=== PATIENT | female | born 1980 | race Two or more races ===

== ENCOUNTER 2017-03-28 10:18 | Emergency (ER) | payer SELFPAY ==
[~2017-03-28] VITALS: Ht 170.2 cm; Wt 72.6 kg
[2017-03-28 10:23] VITALS: BP 125/87
[2017-03-28] MEDS ORDERED: IBUPROFEN 800 MG TAB PO ONE ×2 (10:49→11:00)
== END 2017-03-28 11:33 | disposition home or self-care (01) ==
LOC: ER 10:18
DX: S16.1XXA Strain of muscle, fascia and tendon at neck level, initial encounter (principal); S20.212A Contusion of left front wall of thorax, initial encounter; V49.49XA Driver injured in collision with other motor vehicles in traffic accident, initial encounter; Y93.89 Activity, other specified; Y99.8 Other external cause status; Y92.89 Other specified places as the place of occurrence of the external cause
CPT/HCPCS: 71020

== ENCOUNTER → 2022-01-11 | Outpatient (CLI) | payer OTHER, BC ==
[2022-01-11 10:59] LABS: Albumin 3.7 g/dL (3.4-5.0); Calcium 9.1 mg/dL (8.5-10.1); Potassium 3.9 mmol/L (3.5-5.1)
[2022-01-11 11:03] LABS: Urine Bacteria MOD /hpf (None Seen); Urine Blood Negative /uL (Negative); Urine Mucus FEW (None Seen); Urine Specific Gravity 1.024 (1.001-1.035); Urine WBC 5 /hpf (0 - 5)
[2022-01-11 11:10] LABS: Thyroid Stimulating Hormone 0.95 uIU/mL (0.358-3.74)
[2022-01-11 11:12] LABS: BUN/Creatinine Ratio 17.6; Bilirubin, Total 0.5 mg/dL (0.2-1.0); Total Protein 8.7 g/dL (6.4-8.2); Uric Acid 3.2 mg/dL (2.6-6.0)
[2022-01-11 14:52] LABS: Basophils # (auto) 0 10 ^3/uL (0-0.2); Basophils % (auto) 0.3 % (0.0-2.0); Eosinophils # (auto) 0.2 10 ^3/uL (0-0.8); Eosinophils % (auto) 1.8 % (0.0-7.0); Hematocrit 41.4 % (36.0-46.0); Hemoglobin 14.1 g/dL (12.2-16.2); Lymphocytes # (auto) 2.7 10 ^3/uL (0.4-5.4); Lymphocytes % (auto) 26.7 % (10.0-50.0); Mean Corpuscular Hemoglobin 30.8 pg (28.0-32.0); Mean Corpuscular Volume 90.7 fL (80.0-100.0); Monocytes % (auto) 9.6 % (0.0-12.0); Neutrophils # (auto) 6.1 10 ^3/uL (1.6-8.6); Neutrophils % (auto) 61.6 % (37.0-80.0); Nucleated Red Blood Cells % 0.1 %; Red Blood Cells 4.56 10^6/uL (4.0-5.20); Red Cell Distribution Width 13.6 % (11.8-14.3)
== END | disposition home or self-care (01) ==
LOC: LAB 09:48
PROVIDERS: ATTEND Internal Medicine
DX: U07.1 COVID-19 (principal); O99.345 Other mental disorders complicating the puerperium
CPT/HCPCS: 36415; 80053; 80061; 81001; 83615; 84439; 84443; 84550; 85025; 85379; 85652; 86200; 86431; 86703

== ENCOUNTER 2022-01-12 11:40 | Emergency (ER) | payer BC, OTHER ==
[~2022-01-12] VITALS: Ht 160 cm; Wt 70.3 kg
[2022-01-12] MEDS ORDERED: ASPirin 81 mg TAB PO ONE (12:15)
[2022-01-12] MEDS ORDERED: IOHEXOL 350 MG/ML 100ML IJ ONE (12:58)
[2022-01-12 14:30] LABS: Basophils # (auto) 0 10 ^3/uL (0-0.2); Basophils % (auto) 0.4 % (0.0-2.0); Nucleated Red Blood Cells % 0.1 %
[2022-01-12 14:36] LABS: Eosinophils # (auto) 0.1 10 ^3/uL (0-0.8); Eosinophils % (auto) 1.6 % (0.0-7.0); Hematocrit 38.9 % (36.0-46.0); Lymphocytes # (auto) 2.9 10 ^3/uL (0.4-5.4); Lymphocytes % (auto) 32.1 % (10.0-50.0); Mean Corpuscular Hemoglobin 30.2 pg (28.0-32.0); Mean Corpuscular Hgb Conc. 33.5 g/dL (32.0-36.0); Mean Corpuscular Volume 90.3 fL (80.0-100.0); Monocytes # (auto) 0.8 10 ^3/uL (0-1.3); Monocytes % (auto) 9.4 % (0.0-12.0); Neutrophils # (auto) 5.1 10 ^3/uL (1.6-8.6); Neutrophils % (auto) 56.5 % (37.0-80.0); Red Blood Cells 4.31 10^6/uL (4.0-5.20); Red Cell Distribution Width 13.6 % (11.8-14.3)
[2022-01-12 14:42] LABS: Albumin 3.3 g/dL (3.4-5.0); Calcium 8.6 mg/dL (8.5-10.1); Potassium 3.8 mmol/L (3.5-5.1)
[2022-01-12 14:48] LABS: Bilirubin, Total 0.4 mg/dL (0.2-1.0); Total Protein 7.7 g/dL (6.4-8.2)
[2022-01-12 15:12] VITALS: BP 115/72
== END 2022-01-12 15:14 | disposition home or self-care (01) ==
LOC: ER 11:40
DX: R07.89 Other chest pain (principal); R07.81 Pleurodynia
CPT/HCPCS: 36415; 71275; 80053; 84484; 85025; 93005; 99285; Q9967

== ENCOUNTER 2022-03-02 15:18 | Emergency (ER) | payer BC, OTHER ==
[~2022-03-02] VITALS: Ht 160 cm; Wt 70.8 kg
[2022-03-02 15:29] VITALS: BP 113/74
== END 2022-03-02 17:40 | disposition home or self-care (01) ==
LOC: ER 15:18
DX: S06.9X9A Unspecified intracranial injury with loss of consciousness of unspecified duration, initial encounter (principal); S16.1XXA Strain of muscle, fascia and tendon at neck level, initial encounter; S39.012A Strain of muscle, fascia and tendon of lower back, initial encounter; W21.07XA Struck by softball, initial encounter; Y93.89 Activity, other specified; Y92.89 Other specified places as the place of occurrence of the external cause; Y99.8 Other external cause status
CPT/HCPCS: 70450

== ENCOUNTER → 2022-04-10 | Outpatient (CLI) | payer BC, OTHER ==
[2022-04-10 12:25] LABS: Basophils # (auto) 0 10 ^3/uL (0-0.2); Basophils % (auto) 0.5 % (0.0-2.0); Eosinophils # (auto) 0.1 10 ^3/uL (0-0.8); Eosinophils % (auto) 1.3 % (0.0-7.0); Hematocrit 38.3 % (36.0-46.0); Hemoglobin 12.9 g/dL (12.2-16.2); Lymphocytes # (auto) 2.6 10 ^3/uL (0.4-5.4); Lymphocytes % (auto) 40.5 % (10.0-50.0); Mean Corpuscular Hemoglobin 29.8 pg (28.0-32.0); Mean Corpuscular Hgb Conc. 33.8 g/dL (32.0-36.0); Monocytes # (auto) 0.7 10 ^3/uL (0-1.3); Monocytes % (auto) 10.3 % (0.0-12.0); Neutrophils % (auto) 47.4 % (37.0-80.0); Nucleated Red Blood Cells % 0.1 %; Red Blood Cells 4.34 10^6/uL (4.0-5.20); Red Cell Distribution Width 13.3 % (11.8-14.3); White Blood Cell 6.4 10^3/uL (4.4-10.8)
== END | disposition home or self-care (01) ==
LOC: LAB 12:00
PROVIDERS: ATTEND Internal Medicine
DX: D75.839 Thrombocytosis, unspecified (principal); E88.09 Other disorders of plasma-protein metabolism, not elsewhere classified
CPT/HCPCS: 36415; 82040; 83540; 84439; 84443; 85025

== ENCOUNTER → 2022-08-08 | Outpatient (CLI) | payer BC, OTHER ==
[2022-08-08 11:17] LABS: Basophils # (auto) 0 10 ^3/uL (0-0.2); Basophils % (auto) 0.3 % (0.0-2.0); Eosinophils # (auto) 0.1 10 ^3/uL (0-0.8); Eosinophils % (auto) 1.2 % (0.0-7.0); Hematocrit 41.2 % (36.0-46.0); Hemoglobin 13.1 g/dL (12.2-16.2); Lymphocytes # (auto) 2.4 10 ^3/uL (0.4-5.4); Lymphocytes % (auto) 40.2 % (10.0-50.0); Mean Corpuscular Hemoglobin 27.6 pg (28.0-32.0); Mean Corpuscular Hgb Conc. 31.9 g/dL (32.0-36.0); Mean Corpuscular Volume 86.4 fL (80.0-100.0); Monocytes # (auto) 0.7 10 ^3/uL (0-1.3); Monocytes % (auto) 11.7 % (0.0-12.0); Neutrophils # (auto) 2.8 10 ^3/uL (1.6-8.6); Neutrophils % (auto) 46.6 % (37.0-80.0); Red Blood Cells 4.77 10^6/uL (4.0-5.20); Red Cell Distribution Width 13.8 % (11.8-14.3); White Blood Cell 5.9 10^3/uL (4.4-10.8)
[2022-08-08 12:55] LABS: Albumin 3.3 g/dL (3.4-5.0); BUN/Creatinine Ratio 18.9; Calcium 8.4 mg/dL (8.5-10.1); Potassium 4.5 mmol/L (3.5-5.1)
[2022-08-08 12:59] LABS: Bilirubin, Total 0.5 mg/dL (0.2-1.0); Total Protein 7.2 g/dL (6.4-8.2)
== END | disposition home or self-care (01) ==
LOC: LAB 10:58
PROVIDERS: ATTEND Internal Medicine
DX: B34.9 Viral infection, unspecified (principal)
CPT/HCPCS: 36415; 80053; 84439; 84443; 85025

== ENCOUNTER → 2023-06-11 | Outpatient (CLI) | payer BC, OTHER ==
[2023-06-11 12:32] LABS: Basophils # (auto) 0 10 ^3/uL (0-0.2); Basophils % (auto) 0.5 % (0.0-2.0); Eosinophils # (auto) 0.1 10 ^3/uL (0-0.8); Hematocrit 36.8 % (36.0-46.0); Hemoglobin 11.9 g/dL (12.2-16.2); Lymphocytes # (auto) 3.1 10 ^3/uL (0.4-5.4); Monocytes # (auto) 0.5 10 ^3/uL (0-1.3); White Blood Cell 6.9 10^3/uL (4.4-10.8)
[2023-06-11 12:34] LABS: Eosinophils % (auto) 1.1 % (0.0-7.0); Lymphocytes % (auto) 45.2 % (10.0-50.0); Mean Corpuscular Hemoglobin 26.9 pg (28.0-32.0); Mean Corpuscular Hgb Conc. 32.2 g/dL (32.0-36.0); Mean Corpuscular Volume 83.5 fL (80.0-100.0); Monocytes % (auto) 7.8 % (0.0-12.0); Neutrophils # (auto) 3.1 10 ^3/uL (1.6-8.6); Neutrophils % (auto) 45.4 % (37.0-80.0); Nucleated Red Blood Cells % 0.2 %; Red Blood Cells 4.41 10^6/uL (4.0-5.20)
[2023-06-11 13:07] LABS: Calcium 8.3 mg/dL (8.5-10.1); Potassium 3.6 mmol/L (3.5-5.1)
[2023-06-11 13:19] LABS: Albumin 3.5 g/dL (3.4-5.0); BUN/Creatinine Ratio 21.1 (10.0-20.0); Bilirubin, Total 0.3 mg/dL (0.2-1.0); Total Protein 7.7 g/dL (6.4-8.2); Uric Acid 3.7 mg/dL (2.6-6.0)
== END | disposition home or self-care (01) ==
LOC: LAB 11:43
PROVIDERS: ATTEND Internal Medicine
DX: R10.2 Pelvic and perineal pain (principal); M25.50 Pain in unspecified joint
CPT/HCPCS: 36415; 80053; 80061; 84439; 84443; 84550; 85025; 85652; 86200; 86431

== ENCOUNTER → 2023-12-16 | Outpatient (CLI) | payer BC, OTHER ==
[2023-12-16 12:43] LABS: Basophils # (auto) 0 10 ^3/uL (0-0.2); Eosinophils # (auto) 0.1 10 ^3/uL (0-0.8); Red Cell Distribution Width 15.8 % (11.8-14.3); White Blood Cell 8.6 10^3/uL (4.4-10.8)
[2023-12-16 12:45] LABS: Basophils % (auto) 0.3 % (0.0-2.0); Eosinophils % (auto) 0.9 % (0.0-7.0); Hematocrit 40.3 % (36.0-46.0); Hemoglobin 12.9 g/dL (12.2-16.2); Lymphocytes # (auto) 4.1 10 ^3/uL (0.4-5.4); Lymphocytes % (auto) 47.1 % (10.0-50.0); Mean Corpuscular Hemoglobin 26.3 pg (28.0-32.0); Monocytes # (auto) 0.9 10 ^3/uL (0-1.3); Neutrophils # (auto) 3.6 10 ^3/uL (1.6-8.6); Neutrophils % (auto) 41.7 % (37.0-80.0); Red Blood Cells 4.92 10^6/uL (4.0-5.20)
[2023-12-16 13:17] LABS: Alanine Aminotransferase 21 U/L (7-40); Albumin 4.6 g/dL (3.2-4.8); Alkaline Phosphatase 68 U/L (46-116); Anion Gap 6 (5-15); Aspartate Aminotransferase 24 U/L (13-40); BUN/Creatinine Ratio 14.3 (10.0-20.0); Bilirubin, Total 0.8 mg/dL (0.2-1.0); Blood Urea Nitrogen 9 mg/dL (9-23); Calcium 9.6 mg/dL (8.5-10.1); Carbon Dioxide 26 mmol/L (20-30); Chloride 105 mmol/L (98-107); Glucose 91 mg/dL (74-106); Potassium 4.7 mmol/L (3.5-5.1); Sodium 137 mmol/L (136-145); Total Protein 7.9 g/dL (5.7-8.2)
[2023-12-16 15:18] LABS: Erythrocyte Sedimentation Rate 34 mm/hr (0-20)
== END | disposition home or self-care (01) ==
LOC: LAB 12:21
PROVIDERS: ATTEND Internal Medicine
DX: J06.9 Acute upper respiratory infection, unspecified (principal); J32.9 Chronic sinusitis, unspecified
CPT/HCPCS: 36415; 80053; 82785; 85025; 85652

== ENCOUNTER → 2023-12-20 | Outpatient (CLI) | payer BC, OTHER ==
[2023-12-20 15:56] LABS: Basophils # (auto) 0 10 ^3/uL (0-0.2); Eosinophils # (auto) 0.1 10 ^3/uL (0-0.8); Hemoglobin 12.4 g/dL (12.2-16.2); Lymphocytes # (auto) 4.3 10 ^3/uL (0.4-5.4); Nucleated Red Blood Cells % 0.1 %
[2023-12-20 15:58] LABS: Basophils % (auto) 0.5 % (0.0-2.0); Hematocrit 38.5 % (36.0-46.0); Lymphocytes % (auto) 44.4 % (10.0-50.0); Mean Corpuscular Hemoglobin 25.9 pg (28.0-32.0); Mean Corpuscular Hgb Conc. 32.2 g/dL (32.0-36.0); Mean Corpuscular Volume 80.4 fL (80.0-100.0); Monocytes # (auto) 1.2 10 ^3/uL (0-1.3); Monocytes % (auto) 12.5 % (0.0-12.0); Neutrophils % (auto) 41.6 % (37.0-80.0); Red Blood Cells 4.79 10^6/uL (4.0-5.20); Red Cell Distribution Width 15.5 % (11.8-14.3); White Blood Cell 9.6 10^3/uL (4.4-10.8)
[2023-12-20 16:20] LABS: Alanine Aminotransferase 15 U/L (7-40); Alkaline Phosphatase 78 U/L (46-116); Anion Gap 6 (5-15); Aspartate Aminotransferase 19 U/L (13-40); BUN/Creatinine Ratio 16.7 (10.0-20.0); Blood Urea Nitrogen 11 mg/dL (9-23); CRP High Sensitivity 0.15 mg/dL (<1.0); Calcium 9.5 mg/dL (8.5-10.1); Carbon Dioxide 24 mmol/L (20-30); Chloride 109 mmol/L (98-107); Glucose 92 mg/dL (74-106); Potassium 4.8 mmol/L (3.5-5.1); Sodium 139 mmol/L (136-145)
[2023-12-20 16:21] LABS: Albumin 4.5 g/dL (3.2-4.8); Bilirubin, Total 0.6 mg/dL (0.2-1.0); Total Protein 7.8 g/dL (5.7-8.2)
== END | disposition home or self-care (01) ==
LOC: LAB 15:44
PROVIDERS: ATTEND Internal Medicine
DX: D75.839 Thrombocytosis, unspecified (principal)
CPT/HCPCS: 36415; 80053; 85025; 86141

== ENCOUNTER → 2023-12-31 | Outpatient (CLI) | payer BC, OTHER ==
[2023-12-31 11:54] LABS: Basophils # (auto) 0 10 ^3/uL (0-0.2); Basophils % (auto) 0.5 % (0.0-2.0); Eosinophils # (auto) 0.1 10 ^3/uL (0-0.8); Eosinophils % (auto) 1.5 % (0.0-7.0); Hematocrit 35.8 % (36.0-46.0); Hemoglobin 11.3 g/dL (12.2-16.2); Lymphocytes # (auto) 3.5 10 ^3/uL (0.4-5.4); Lymphocytes % (auto) 48.9 % (10.0-50.0); Mean Corpuscular Hemoglobin 25.8 pg (28.0-32.0); Mean Corpuscular Hgb Conc. 31.5 g/dL (32.0-36.0); Mean Corpuscular Volume 81.9 fL (80.0-100.0); Monocytes # (auto) 0.6 10 ^3/uL (0-1.3); Monocytes % (auto) 8.6 % (0.0-12.0); Neutrophils # (auto) 2.9 10 ^3/uL (1.6-8.6); Neutrophils % (auto) 40.5 % (37.0-80.0); Nucleated Red Blood Cells % 0.1 %; Red Blood Cells 4.37 10^6/uL (4.0-5.20); Red Cell Distribution Width 15.8 % (11.8-14.3); White Blood Cell 7.2 10^3/uL (4.4-10.8)
[2023-12-31 12:30] LABS: Erythrocyte Sedimentation Rate 14 mm/hr (0-20)
[2024-01-01 08:06] LABS: Rheumatoid Arthritis Factor <10.0 IU/mL (<14.0)
[2024-01-02 18:06] LABS: CCP IgG/IgA Antibody 8 units (0-19)
== END | disposition home or self-care (01) ==
LOC: LAB 11:17
PROVIDERS: ATTEND Internal Medicine
DX: D47.3 Essential (hemorrhagic) thrombocythemia (principal); B34.9 Viral infection, unspecified
CPT/HCPCS: 36415; 85025; 85652; 86141; 86200; 86431

== ENCOUNTER → 2024-01-02 | Outpatient (CLI) | payer BC, OTHER | END | disposition home or self-care (01) | LOC: LAB 14:23 | PROVIDERS: ATTEND Internal Medicine | DX: R93.89 Abnormal findings on diagnostic imaging of other specified body structures (principal) | CPT/HCPCS: 36415; 82565; 84520 ==

== ENCOUNTER → 2024-01-07 | Outpatient (CLI) | payer BC, OTHER | END | disposition home or self-care (01) | LOC: LAB 12:41 | PROVIDERS: ATTEND Internal Medicine | DX: J02.9 Acute pharyngitis, unspecified (principal) | CPT/HCPCS: 87070 ==

== ENCOUNTER 2024-01-22 12:18 | Emergency (ER) | payer BC, OTHER ==
[~2024-01-22] VITALS: Ht 160 cm; Wt 75.0 kg
[2024-01-22 12:53] LABS: Basophils # (auto) 0 10 ^3/uL (0-0.2); Basophils % (auto) 0.5 % (0.0-2.0); Eosinophils # (auto) 0.1 10 ^3/uL (0-0.8); Hemoglobin 11.2 g/dL (12.2-16.2); Lymphocytes # (auto) 3.5 10 ^3/uL (0.4-5.4); Monocytes # (auto) 0.5 10 ^3/uL (0-1.3); Nucleated Red Blood Cells % 0.1 %; White Blood Cell 8.1 10^3/uL (4.4-10.8)
[2024-01-22 12:54] LABS: Eosinophils % (auto) 0.8 % (0.0-7.0); Hematocrit 34.7 % (36.0-46.0); Lymphocytes % (auto) 42.8 % (10.0-50.0); Mean Corpuscular Hemoglobin 26.2 pg (28.0-32.0); Mean Corpuscular Hgb Conc. 32.2 g/dL (32.0-36.0); Mean Corpuscular Volume 81.3 fL (80.0-100.0); Monocytes % (auto) 6.6 % (0.0-12.0); Neutrophils % (auto) 49.3 % (37.0-80.0); Red Blood Cells 4.26 10^6/uL (4.0-5.20); Red Cell Distribution Width 16.1 % (11.8-14.3)
[2024-01-22 13:02] LABS: Chloride 107 mmol/L (98-107); Potassium 3.9 mmol/L (3.5-5.1); Sodium 139 mmol/L (136-145)
[2024-01-22 13:03] LABS: Anion Gap 3 (5-15); Calcium 8.9 mg/dL (8.5-10.1); Carbon Dioxide 29 mmol/L (20-30)
[2024-01-22 13:08] LABS: BUN/Creatinine Ratio 10.9 (10.0-20.0); Blood Urea Nitrogen 6 mg/dL (9-23); Glucose 92 mg/dL (74-106)
[2024-01-22] MEDS ORDERED: MECL1TAB42 PO (15:35)
[2024-01-22] MEDS: MECLIZINE HCL 25 MG TAB PO ONE (15:56)
[2024-01-22 18:30] VITALS: BP 120/68; PULSE 77; RESP 20; TEMP 98.2; O2SAT 100
== END 2024-01-22 19:09 | disposition home or self-care (01) ==
LOC: ER 12:18
DX: H81.90 Unspecified disorder of vestibular function, unspecified ear (principal)
CPT/HCPCS: 36415; 70450; 80048; 85025; 99284; J8597

== ENCOUNTER → 2024-01-23 | Outpatient (CLI) | payer BC, OTHER ==
[~2024-01-23] MED LIST: MECL1TAB42 PO
[2024-01-23 12:50] LABS: Basophils # (auto) 0 10 ^3/uL (0-0.2); Eosinophils # (auto) 0.1 10 ^3/uL (0-0.8); Lymphocytes # (auto) 3.2 10 ^3/uL (0.4-5.4); Monocytes # (auto) 0.6 10 ^3/uL (0-1.3); Neutrophils # (auto) 5.7 10 ^3/uL (1.6-8.6)
[2024-01-23 12:52] LABS: Basophils % (auto) 0.2 % (0.0-2.0); Eosinophils % (auto) 0.5 % (0.0-7.0); Hematocrit 35.6 % (36.0-46.0); Hemoglobin 11.6 g/dL (12.2-16.2); Lymphocytes % (auto) 33.1 % (10.0-50.0); Mean Corpuscular Hemoglobin 26.5 pg (28.0-32.0); Mean Corpuscular Hgb Conc. 32.6 g/dL (32.0-36.0); Mean Corpuscular Volume 81.4 fL (80.0-100.0); Monocytes % (auto) 6.6 % (0.0-12.0); Neutrophils % (auto) 59.6 % (37.0-80.0); Red Blood Cells 4.37 10^6/uL (4.0-5.20); Red Cell Distribution Width 16.6 % (11.8-14.3); White Blood Cell 9.6 10^3/uL (4.4-10.8)
[2024-01-23 13:23] LABS: INR 0.98 (0.9-1.15); Partial Thromboplastin Time 28.8 SEC (24.5-34.5); Prothrombin Time 10.3 sec (9.3-11.8)
[2024-01-23 13:35] LABS: Erythrocyte Sedimentation Rate 25 mm/hr (0-20)
== END | disposition home or self-care (01) ==
LOC: LAB 12:00
PROVIDERS: ATTEND Internal Medicine
DX: U07.1 COVID-19 (principal); D47.3 Essential (hemorrhagic) thrombocythemia; J32.9 Chronic sinusitis, unspecified
CPT/HCPCS: 36415; 82607; 82785; 85025; 85610; 85652; 85730

== ENCOUNTER → 2024-01-31 | Outpatient (CLI) | payer BC, OTHER ==
[2024-01-31 11:19] LABS: Eosinophils # (auto) 0.2 10 ^3/uL (0-0.8); Hemoglobin 11.4 g/dL (12.2-16.2); Lymphocytes # (auto) 2.9 10 ^3/uL (0.4-5.4); Neutrophils # (auto) 4.9 10 ^3/uL (1.6-8.6)
[2024-01-31 11:20] LABS: Basophils # (auto) 0.1 10 ^3/uL (0-0.2); Basophils % (auto) 0.6 % (0.0-2.0); Eosinophils % (auto) 2.4 % (0.0-7.0); Hematocrit 35.9 % (36.0-46.0); Lymphocytes % (auto) 32.1 % (10.0-50.0); Mean Corpuscular Hgb Conc. 31.8 g/dL (32.0-36.0); Mean Corpuscular Volume 81.7 fL (80.0-100.0); Monocytes % (auto) 11.1 % (0.0-12.0); Neutrophils % (auto) 53.8 % (37.0-80.0); Red Blood Cells 4.39 10^6/uL (4.0-5.20); White Blood Cell 9.2 10^3/uL (4.4-10.8)
== END | disposition home or self-care (01) ==
LOC: LAB 11:05
PROVIDERS: ATTEND Internal Medicine
DX: D47.3 Essential (hemorrhagic) thrombocythemia (principal); J02.9 Acute pharyngitis, unspecified
CPT/HCPCS: 36415; 85025; 87070